=== PATIENT | male | born 1990 | race Caucasian/White ===

== ENCOUNTER 2017-11-10 18:42 | Emergency (ER) | payer BC, OTHER ==
[2017-11-10 20:16] VITALS: BP 137/77
[2017-11-10] MEDS ORDERED: LORazepam TAB(*) 1 MG PO ONE (21:08)
--- NOTE | 2017-11-10 21:21 | UC ---
General HPI - HPI Summary HPI Summary: Pt is a pleasant gentleman states has h/o anxiety and panic attacks. Pt states he was previously on daily medication and tok xanax prn. STates at most took TID. Pt states 8 months ago was doing well, stopped counseling. Pt states had learned way to control his anxiety through focusing breathing and thoughts. At this time was off all meds. Pt states has started a new job 1 month ago and is feeling increased symptoms. pt states this morning had overwhelming anxiety when woke up. STates tryied to calm self, but struggled. Pt too left radha xanax with some improvement. Pt states had appt last Fri with new PCP for evaluation and resumption of Rx, but was cancelled second to [facility]. pt states has an appointment for Friday, but became concerned after this morning. Pt denies SI/ HI adamantly - pt states SO is aware and supportive. Pt states with anxiety has nausea. At time of my eval no physical complaints. Pt states frustrated "need help with meds" Pt's medications reviewed this visit - History of Current Complaint Chief Complaint: UCGeneralIllness Stated Complaint: ANXIETY Time Seen by Provider: 11/10/17 20:50 Hx Obtained From: Patient Onset/Duration: Gradual Onset, Lasting Weeks Onset Severity: Mild Pain Intensity: 0 - Allergy/Home Medications Allergies/Adverse Reactions: Allergies Allergy/AdvReac Type Severity Reaction Status Date / Time No Known Allergies Allergy Verified 11/10/17 20:16 PMH/Surg Hx/FS Hx/Imm Hx Previously Healthy: Yes - Surgical History Surgical History: Yes Surgery Procedure, Year, and Place: Left Knee Arthroscopy (meniscus) - Family History Known Family History: Positive: None Negative: Cardiac Disease, Hypertension, Diabetes - Social History Occupation: Employed Full-time Lives: With Family Alcohol Use: Occasionally Alcohol Amount: once a week Substance Use Type: None Smoking Status (MU): Former Smoker Type: Cigarettes Amount Used/How Often: 3 CIGS PER DAY Have You Smoked in the Last Year: Yes Household Exposure Type: Cigarettes - Immunization History Most Recent Influenza Vaccination: Not the season Hx Tetanus, Diphtheria Vaccination: Yes Vaccination Up to Date: Yes Review of Systems Constitutional: Negative Skin: Negative Eyes: Negative ENT: Negative Respiratory: Negative Cardiovascular: Negative Gastrointestinal: Nausea Genitourinary: Negative Motor: Negative Neurovascular: Negative Musculoskeletal: Negative Neurological: Negative Psychological: Anxious All Other Systems Reviewed And Are Negative: Yes Physical Exam Triage Information Reviewed: Yes Appearance: Well-Appearing, No Pain Distress, Well-Nourished Vital Signs: Initial Vital Signs Temp 98.6 F 11/10/17 20:09 Pulse 73 11/10/17 20:09 Resp 15 11/10/17 20:09 BP 137/77 11/10/17 20:09 Pulse Ox 100 11/10/17 20:09 Vital Signs Reviewed: Yes Eye Exam: Normal Eyes: Positive: Conjunctiva Clear ENT Exam: Normal ENT: Positive: Normal ENT inspection, Hearing grossly normal, TMs normal Dental Exam: Normal Respiratory: Positive: Chest non-tender, Lungs clear, Normal breath sounds, No respiratory distress, No accessory muscle use Cardiovascular: Positive: RRR, No Murmur Abdominal Exam: Normal Abdomen Description: Positive: Nontender Bowel Sounds: Positive: Present Musculoskeletal Exam: Normal Neurological Exam: Normal Neurological: Positive: Alert Psychological: Positive: Other: - intermittent tearful, appropriate Skin Exam: Normal Course/Dx - Course Course Of Treatment: Pt with h/o anxiety and panic was well controlled. pt with recurrent sx s/p new job pt pcp appt cancelled with stomr -rescheduled Fr. Pt not SI/HI. return precautions / 911 discussed. Pt with good support. Ativan for d/c, xanax for home. pt states undestanding and agreement with plan - Differential Dx - Multi-Symptom Provider Diagnoses: anxiety Discharge - Discharge Plan Condition: Stable Disposition: HOME Prescriptions: ALPRAZolam TAB* [Xanax TAB*] 0.25 mg PO Q8H PRN #10 tab MDD 3 PRN Reason: Anxiety Patient Education Materials: Anxiety (ED) Referrals: Ester Parada PA [Physician [employer]] - No Primary Care Phys,NOPCP [Primary Care Provider] - Additional Instructions: Stay well hydrated. Avoid excess caffeine and ALL alcohol Take medication exactly as prescribed for anxiety -do not drive, operate machinery or drink alcohol while taking these medications eat regular, healthy meals keep your appointment as scheduled with your primary care provider in Friday If you are feeling overwhelmed and having difficulty- call 911 or have someone accompany you to the nearest emergency department
== END 2017-11-10 21:25 | disposition home or self-care (01) ==
LOC: UCCORT 18:42
DX: F17.290 Nicotine dependence, other tobacco product, uncomplicated (principal); F41.9 Anxiety disorder, unspecified
CPT/HCPCS: 99212; A9270-GY; G0463

== ENCOUNTER 2018-01-16 12:56 | Emergency (ER) | payer BC, OTHER ==
[2018-01-16 13:53] VITALS: BP 133/82
--- NOTE | 2018-01-16 14:10 | UC ---
Neck Pain HPI - HPI Summary HPI Summary: 27 y/o male presents to the urgent care c/o neck pain s/p weight lifting and pulling a muscle at the [facility] since Friday01/12/2018. Pt states he has experience something similar in the past, but this time it hasn't resolve and now it is difficult to turn his neck form side to side and unable to sleep well at night time. Pain is 9/10 this morning, He took and Ibuprofen PO 400mg and pain decrease to 5/10. Pain is sharp and radiates to the left side of his neck. Pt denies numbness or tinglin ssensation over the arms, SOB, MAN, dizziness, chest pain, abdominal pain, N/V/D - History of Current Complaint Chief Complaint: UCWounds Stated Complaint: NECK PAIN Time Seen by Provider: 01/16/18 14:08 Hx Obtained From: Patient Onset/Duration Of Injury/Symptoms: Days - 5 days Timing: Constant Onset/Duration: Sudden Onset, Lasting Days - 5 days, Still Present Severity: Moderate Pain Intensity: 9 - this morning, now 5/10 Pain Scale Used: 0-10 Numeric Location: Discrete At: - neck LF>RT, Radiates To: - LF shoulder Character: Sharp, Stiff, Spasmotic Alleviating Factors: OTC Meds Associated Signs & Symptoms: Positive: Negative. Negative: Swelling, Redness, Bruising, Fever, Weakness, Headache, Paresthesia - Risk Factors Meningitis Risk Factors: Negative - Allergies/Home Medications Allergies/Adverse Reactions: Allergies Allergy/AdvReac Type Severity Reaction Status Date / Time No Known Allergies Allergy Verified 01/16/18 13:53 Home Medications: Home Medications Venlafaxine EXT RELEASE CAP* [Effexor Xr CAP*] 37.5 mg PO DAILY 01/16/18 [ History Confirmed 01/16/18] PMH/Surg Hx/FS Hx/Imm Hx Previously Healthy: Yes Psychological History: Anxiety - Surgical History Surgical History: Yes Surgery Procedure, Year, and Place: Left Knee Arthroscopy (meniscus) - Family History Known Family History: Positive: None - Pt denieds FMHX Negative: Cardiac Disease, Hypertension, Diabetes - Social History Occupation: Employed Full-time Lives: With Family Alcohol Use: Weekly Alcohol Amount: once a week Substance Use Type: None Smoking Status (MU): Former Smoker Type: Cigarettes Amount Used/How Often: 3 CIGS PER DAY Have You Smoked in the Last Year: Yes Household Exposure Type: Cigarettes - Immunization History Most Recent Influenza Vaccination: Not the 2013/2014 season Hx Tetanus, Diphtheria Vaccination: Yes Vaccination Up to Date: Yes Review Of Systems Constitutional: Positive: Negative Skin: Positive: Negative Eyes: Positive: Negative ENT: Positive: Negative Respiratory: Positive: Negative Cardiovascular: Positive: Negative Gastrointestinal: Positive: Negative Genitourinary: Positive: Negative Musculoskeletal: Positive: Decreased ROM - neck, Other: - neck pain s/p lifting weights Neurological: Positive: Negative Psychological: Positive: Negative All Other Systems Reviewed And Are Negative: Yes Physical Exam - Summary Physical Exam Summary: Vital Signs Reviewed: Yes General: well developed, well nourished male sitting in the examining w/o any apparent distress. Eyes: Positive: Conjunctiva Clear - -Eyes: sclera and conjunctiva clear, corneas grossly clear, PEERLA, EOMI, no nystagmus, no ptosis,no photophobia, normal fundoscopic exam, normal visual allison,, Other: - -Head:scalp atraumatic , NT, no trigger points ENT: Positive: Normal ENT inspection, Hearing grossly normal, Pharynx normal, TMs normal - B/L external ear canals clear, Other: - No TMJ tenderness. Negative : Nasal congestion, Nasal drainage, Tonsillar swelling, Tonsillar exudate Dental Exam: Normal Neck: no surface trauma, open wounds, soft tissue, Point tenderness over the LF side of neck w/ spasm; trachea midline, NT over larynx. No subcutaneous emphysema or crepitus. No bony tenderness, step-off or deformity to firm palpation at posterior midline. Decrease ROM with limitation to LF side due to pain;No meningeal signs, no Kernig's or brudzinskis signs. Respiratory: Positive: Chest non-tender, Lungs clear, Normal breath sounds, No respiratory distress Cardiovascular: Positive: RRR, No Murmur, Pulses Normal, Brisk Capillary Refill Abdomen Description: Positive: Nontender, No Organomegaly, Soft. Negative: CVA Tenderness (R), CVA Tenderness (L) Bowel Sounds: Positive: Present Musculoskeletal: Positive: Strength Intact, ROM Intact, No Edema Neurological: Positive: Alert - A&OX3, CNII-XII WNL, speech, memory and expression WNL,, Muscle Tone Normal - Muscle strength 5/5 in both upper and lower extremities. Normal gait, negative Romberg test and good coordination finger to nose, heel to ledesma WNL, sensation intact. Reflexes WNL Psychological Exam: Normal Skin: Positive: warm and dry , no rashes or petechiae observed Triage Information Reviewed: Yes Vital Signs: Initial Vital Signs Temp 97.6 F 01/16/18 13:49 Pulse 70 01/16/18 13:49 Resp 18 01/16/18 13:49 BP 133/82 01/16/18 13:49 Pulse Ox 98 01/16/18 13:49 Neck Pain Course/Dx - Course Course Of Treatment: 27 y/o male presents to the urgent care c/o neck pain s/p weight lifting and pulling a muscle at the [facility] since Friday01/12/2018. Pt states he has experience something similar in the past, but this time it hasn't resolve and now it is difficult to turn his neck form side to side and unable to sleep well at night time. Pain is 9/10 this morning, He took and Ibuprofen PO 400mg and pain decrease to 5/10. Pain is sharp and radiates to the left side of his neck. Pt denies numbness or tinglin ssensation over the arms, SOB, MAN, dizziness, chest pain, abdominal pain, N/V/D. Hx obtained. Cervical X-ray series order: Impression:No evidence of fracture or subluxation. Degenerative disc disease at C5-C6 and C6-C7. Pt w/ probably neck spasm. Pt Rx Naproxen PO, flexeril PO and Prednisone taper dose PO. Pt given a soft collar to avoid movement. Pt strongly advised to f/u w/ Neurosurgeon DR Uriostegui in 1 week if symptoms do not improve or worsen. Patient understands and agrees w/ plan of care. Patient is able to ambulate freely. All questions were answered at patient satisfaction. Pt left clinic hemodynamically stable, A&OX3. - Differential Dx/Diagnosis Differential Dx/HQI/PQRI: Cervical Fracture, Sprain, Strain, Torticollis, Other - Degenerative disc disease Provider Diagnoses: 1- Acute neck pain s/p injury. 2-Degenerative Disc disease at C5-6 and C6-7. 3 Neck spasm Discharge - Sign-Out/Discharge Documenting (check all that apply): Discharge/Admit/Transfer - D/C home - Discharge Plan Condition: Stable Disposition: HOME Prescriptions: Cyclobenzaprine TAB* [Flexeril 10 MG TAB*] 10 mg PO TID PRN #21 tab PRN Reason: Spasms - Neck methylPREDNISolone [Medrol Dosepak 4 MG*] 4 mg PO .SEE PRESTON INSTRUCTION #1 preston Naproxen TAB* [Naprosyn 250 mg TAB*] 250 mg PO Q8H PRN #30 tab PRN Reason: Pain Patient Education Materials: Degenerative Disc Disease (ED), Acute Neck Pain ( ED) Referrals: [facility] [place] [place] [facility] REFERRAL [Outside] - 3 Days Mahesh Boggs MD [Medical Doctor] - 1 Week Porsha Uriostegui MD [Medical Doctor] - 1 Week Additional Instructions: 1- Please take Naproxen PO as directed after meals for pain. Take the Medrol dose preston as directed to alleviate inflammation 2- Take Flexeril PO as directed for muscle spasm. Please do not drive while taking the medication. 3- Wear cervical collar to avoid flexion of your neck. Avoid strenuous exercise or heavy lifting. 4- Please follow up with Orthopedic Dr Boggs or Neurosurgeon Dr Uriostegui or your PCP in 1 week if not improvement of symptoms, for further management. - Billing Disposition and Condition Condition: STABLE Disposition: HOME
[2018-01-16] MEDS ORDERED: Naproxen TAB* 250 MG PO ONE (14:21)
--- NOTE | 2018-01-16 14:51 | RAD ---
Indication: Neck pain. 5 views of the cervical spine are reviewed. Vertebral bodies appear normal in height. Straightening of the normal lordosis is noted. Disc space narrowing with mild ventral osteophyte formation is noted at C5-C6 and C6-C7. Spinal canal and intervertebral foramen appear patent. IMPRESSION: Degenerative disc disease at C5-C6 and C6-C7.
== END 2018-01-16 15:35 | disposition home or self-care (01) ==
LOC: UCEAST 12:56
DX: M54.2 Cervicalgia (principal); Z87.891 Personal history of nicotine dependence; M50.322 Other cervical disc degeneration at C5-C6 level; M50.323 Other cervical disc degeneration at C6-C7 level
CPT/HCPCS: 72050; 99212; A9270-GY; G0463